=== PATIENT | male | born 1955 | race Caucasian/White ===

== ENCOUNTER 2019-01-24 07:03 | Emergency (ER) | payer MEDICARE, MEDICAID ==
[~2019-01-24] VITALS: Ht 175.3 cm; Wt 70.0 kg
[2019-01-24 08:16] LABS: BASOPHILS % (AUTO) 0.1 % (0-1); EOSINOPHILS # (AUTO) 0.1 X10'3 (0-0.9); EOSINOPHILS % (AUTO) 0.5 % (0-6); HEMATOCRIT 44.8 % (42.0-52.0); HEMOGLOBIN 14.7 g/dl (14.0-17.9); LYMPHOCYTES # (AUTO) 1.4 X10'3 (1.1-4.8); LYMPHOCYTES % (AUTO) 9.9 % (21-51); MEAN CORPUSCULAR HEMOGLOBIN 28.5 PG (27.0-31.0); MEAN CORPUSCULAR HGB CONC 32.8 g/dL (33.0-36.5); MEAN CORPUSCULAR VOLUME 86.6 FL (78-98); MEAN PLATELET VOLUME 9.3 FL (7.4-10.4); MONOCYTES # (AUTO) 0.5 X10'3 (0-0.9); MONOCYTES % (AUTO) 3.6 % (2-12); NEUTROPHILS # (AUTO) 12.5 X10'3 (1.8-7.7); NEUTROPHILS % (AUTO) 85.9 % (42-75); PLATELET COUNT 381 X10'3 (140-440); RED BLOOD COUNT 5.17 X10'6 (4.70-6.10); RED CELL DISTRIBUTION WIDTH 13.9 % (11.5-14.5); WHITE BLOOD COUNT 14.6 X10'3 (4.5-11.0)
[2019-01-24 08:19] LABS: CLARITY,URINE CLEAR (Clear); COLOR,URINE YELLOW (Yellow); GLUCOSE, URINE NEGATIVE (Neg); KETONES,URINE 15 mg/dl (Neg); LEUKOCYTE ESTERASE ,URINE NEGATIVE (Neg); NITRITES, URINE NEGATIVE (Neg); OCCULT BLOOD,URINE NEGATIVE (Neg); PH,URINE 6.5 (4.8-8.0); PROTEIN,URINE NEGATIVE (Neg)
[2019-01-24 08:20] LABS: UA COLLECTION TYPE STRAIGHT CATH
[2019-01-24 08:35] LABS: ALANINE AMINOTRANSFERASE 26 U/L (12-78); ALBUMIN 3.4 G/DL (3.4-5.0); ALBUMIN/GLOBULIN RATIO 0.9 (1.1-1.5); ALKALINE PHOSPHATASE 75 IU/L (46-116); ANION GAP 8 (8-16); ASPARTATE AMINO TRANSFERASE 16 U/L (10-37); BLOOD UREA NITROGEN 35 MG/DL (7-18); BUN/CREATININE RATIO 24.5 (5.4-32.0); CALCIUM 9.5 MG/DL (8.5-10.1); CHLORIDE 101 MMOL/L (99-107); CREATININE 1.43 MG/DL (0.60-1.10); GLUCOSE 237 MG/DL (70-104); POTASSIUM 4.6 MMOL/L (3.5-5.1); SODIUM 137 MMOL/L (135-145); TOTAL CARBON DIOXIDE 27.6 MMOL/L (24-32); TOTAL PROTEIN 7.2 G/DL (6.4-8.2); eGFR 50 ML/MIN
[2019-01-24 08:42] LABS: LIPASE 168 U/L (73-393); MAGNESIUM 1.9 MG/DL (1.5-2.4)
[2019-01-24] MEDS ORDERED: FLUO20CA39 PO (09:17)
[2019-01-24] MEDS ORDERED: PREG100C PO (09:17)
[2019-01-24] MEDS ORDERED: LORA0.5T PO (09:17)
[2019-01-24] MEDS ORDERED: LORA10TA7 PO (09:17)
[2019-01-24] MEDS ORDERED: LORA1TAB PO (09:17)
[2019-01-24] MEDS ORDERED: CHOL10002 PO (09:17)
[2019-01-24] MEDS ORDERED: SIMV10TA6 PO (09:17)
--- NOTE | 2019-01-24 10:17 | NUR ---
Contacted [facility], Spoke with Shereen and she is on her way to last picker patient. ETA 15 min.
[2019-01-24 10:59] VITALS: BP 118/82
== END 2019-01-24 11:03 | disposition home or self-care (01) ==
LOC: ER 07:07
DX: D72.829 Elevated white blood cell count, unspecified (principal); R55 Syncope and collapse; R11.2 Nausea with vomiting, unspecified; Z88.0 Allergy status to penicillin; Z79.899 Other long term (current) drug therapy
CPT/HCPCS: 36415; 71045; 80053; 81003; 83690; 83735; 83880; 84484; 85025; 93005; 99284; P9612